=== PATIENT | female | born 1945 | race Caucasian/White ===

== ENCOUNTER 2024-04-15 11:09 | Inpatient (IN) | payer MEDICARE, SELFPAY ==
[2024-04-15] VITALS (7 sets, daily range): BP systolic 141–168; BP diastolic 82–117; PULSE 102–131; RESP 12–26; TEMP 36.2–36.9; O2SAT 86–96; BMI 42.9; BMI 37.8; BMI 42.5
--- NOTE | 2024-04-15 11:29 | VDLE_ITS ---
Reason For Study Reason For Study: Right leg swelling RIGHT LEFT GSV is normal. CFV is compressible, spontaneous, competent, and CFV is compressible, spontaneous, competent and demonstrates pulsatile venous flow. demonstrates pulsatile venous flow. FV is compressible, spontaneous, competent and demonstrates pulsatile venous flow. POP V is compressible, spontaneous, competent and demonstrates pulsatile venous flow. T/P Trunk is compressible. RT PerV is compressible. Acute deep vein thrombosis is noted in the Gastrocnemius V and PTV. It is dilated and NONCOMPRESSIBLE. Nonvascularized structure noted in the right prox calf muscle that measures 0.97 x 3.02 x 7.36 cm. Procedure This is a venous duplex using B-mode, color flow and spectral Doppler. Exam performed portable in ED. A preliminary report was called and/or faxed to [facility]. VL/Venous Duplex US, Unilateral Interpretation Summary Acute deep vein thrombosis is noted in the right gastrocnemius vein, posterior tibial vein. Nonvascularized structure noted in the right proximal calf muscle that measures 0.97 x 3.02 x 7.36 cm. Ordering Physician: Reva Abdalla Performed By: Bryanna Walsh RVT
--- NOTE | 2024-04-15 11:30 | EDS_ITS ---
<Statement entered by Bay Null, - 04/15/24 14:39> Patient was seen and examined with physician warehouse administrative assistant Sonya All components of the history and physical confirmed and agreed. History of present illness and physical exam: Patient is a 78-year-old female with no known significant past medical history who presented to the emerged part with a chief complaint shortness of breath. Patient states that yesterday around 2:00 in the afternoon she developed shortness of breath that had progressively worsened to the point that she could not walk more than 6 feet without becoming severely short of breath prompting her to come here for the valuation management. Patient states that she has had intermittent swelling of her right lower extremity. She states that she is supposed to see her orthopedic doctor tomorrow to be assessed for a DVT. Patient states that a coworker was recently sick with influenza. Patient denies any recent travel history. Review of systems: constitutional: Denies lightheadedness, dizziness, fevers, chills Eyes: Denies change in vision double vision blurry vision Cardiovascular: Denies chest pain or palpitations Respiratory: Complains of shortness of breath as noted above Abdomen: Denies nausea vomit diarrhea : Denies any urinary symptoms Neurological: Denies any numbness, weakness, tingling Musculoskeletal: Denies back pain Skin: Denies rashes or lesions Physical exam General: Patient lying in bed rest comfortably did not appear to be in acute distress Head: Atraumatic, normocephalic Eyes: PERRL bilaterally, EOMI bilateral, no conjunctival injection noted Neck: Soft, supple, trachea midline Cardiovascular: Regular rate and rhythm no murmurs gallops rubs noted Respiratory: No wheezing noted Extremities: +5/5 strength noted in the bilateral upper and lower extremities, radial pulses +2/4 in the bilateral extremities, no pedal edema on exam Neurological: Patient following commands knew that she was at [facility] the year is 2024 Skin: Warm, dry, intact no rashes or lesions noted MDM Patient is a 78-year-old female who presents to the emergency department the chief complaint of acute shortness of breath over the last 2 days. On the differential diagnose included but not limited to pneumonia, pneumothorax, upper respiratory infection secondary to viral etiology, PE. Once workup is obtained and reviewed she will be reevaluated. Patient CBC was largely unremarkable no evidence leukocytosis white blood count normal 8.1, hemoglobin 13.8, plate count was noted be 299. Patient's INR normal at 1.1, PT of 14.2. Patient sodium normal 141, potassium 3.3, creatinine normal at 0.90. Patient's troponin was elevated 464, EKG was reviewed by myself showed sinus tachycardia with a rate of 123 bpm. Patient's proBNP elevated 205. Patient's CTA of her chest reviewed showed diffuse bilateral pulmonary emboli. Patient does not have a contraindications to blood thinner medications no recent surgeries no intracranial hemorrhage no dark tarry stools. Will place the patient on heparin with a bolus. Did discuss case with hospitalist Dr. Ovalles who will accept the patient for admission he states that he would prefer to use Lovenox over heparin therefore this was discontinued. Patient was notified she is agreeable's plan all question concerns answered. Final impression: Acute hypoxic respiratory failure Type II VT Bilateral pulmonary emboli Right lower extremity DVT Disposition: Patient will be admitted to the hospital for further evaluation management Supervising attending attestation: Bay FLOYD History of Present Illness Chief Complaint: Shortness of Breath Narrative Narrative: Patient presenting today with shortness of breath that started yesterday afternoon around 2 PM. She reports that she cannot walk more than 6 feet without feeling short of breath. This has never happened before. She denies any history of COPD, asthma, a cardiac history, or history of blood clots/recent surgery/travel/immobilization. She reports that she has had intermittent swell ing to her right lower leg since November. She is supposed to see her orthopedist tomorrow to be assessed for a DVT. She denies flulike symptoms, fevers, chills, orthopnea, and chest pain. She denies a PMH of any chronic medical conditions but also reports that she does not see a PCP. PFSH PFS Home Medications ?Medication ?Instructions ?Recorded ?Last Taken ?Type No Known/Unobtainable [No Known 4 Unknown History Home Medications] Allergy/AdvReac Type Severity Reaction Status Date / Time No Known Allergies Allergy Verified 04/15/24 11:13 Social History Smoking Status: Never smoker EXAM Physical Exam Const Vital Signs: 04/15/24 11:10 04/15/24 11:12 04/15/24 11:24 Temperature 97.2 F L 97.2 F L Temperature Source Oral Oral Pulse Rate 131 H 127 H Respiratory Rate 22 H 26 H Respiratory Effort Respiratory Depth Respiratory Pattern Blood Pressure 168/117 H 168/117 H Blood Pressure Mean 134 134 Pulse Ox 86 95 Oxygen Delivery Method Room Air Nasal Cannula Room Air Oxygen Flow Rate (L/min) 2 04/15/24 11:54 Temperature Temperature Source Pulse Rate Respiratory Rate Respiratory Effort Short of Breath Respiratory Depth Normal Respiratory Pattern Normal Blood Pressure Blood Pressure Mean Pulse Ox Oxygen Delivery Method Room Air Oxygen Flow Rate (L/min) MDM MDM MDM Narrative Medical decision making narrative: Patient presenting today due to shortness of breath that started acutely yesterday afternoon. She did arrive hypoxic at 86% and is now on 2 L supplemental O2. She is tachycardic around 130 bpm. She has had intermittent right leg swelling since November. I do have concerns for right DVT and PE. Labs obtained, her CBC is unremarkable, potassium slightly low at 3.3, her initial troponin is elevated at 464. BNP 205.3. COVID/influenza/RSV is negati ve. Venous Doppler of the RLE reveals an acute DVT in the right gastroc and PTV. Chest CTA shows diffuse bilateral pulmonary emboli, no right-sided heart strain. Patient does not have any contraindications to anticoagulation, after speaking with the hospitalist regarding admission, he recommended Lovenox. Patient was given a dose of this and will be admitted in stable condition. Lab Data Attestation: I reviewed the patient's lab results. Labs: Laboratory Results - last 24 hr 04/15/24 11:34 WBC 8.1 RBC 4.63 Hgb 13.8 Hct 40.7 MCV 87.9 MCH 29.8 MCHC 33.9 RDW Std Deviation 41.5 RDW Coeff of Tad 13.1 Plt Count 299 MPV 10.3 Immature Gran % (Auto) 0.200 Neut % (Auto) 81.1 H Lymph % (Auto) 12.5 L [place] % (Auto) 5.9 Eos % (Auto) 0.1 Baso % (Auto) 0.2 Absolute Neuts (auto) 6.5 Absolute Lymphs (auto) 1.01 Nucleated RBC % 0 PT 14.2 INR 1.1 APTT 24.3 Sodium 141 Potassium 3.3 L Chloride 106 Carbon Dioxide 24.0 Anion Gap 10 BUN 18 Creatinine 0.90 Estim Creat Clear Calc 60.05 Est GFR (MDRD) Af Amer 78 Est GFR (MDRD) Non-Af 65 BUN/Creatinine Ratio 20.0 Glucose 135 H Calcium 9.7 Troponin I High Sens 464 H* B-Natriuretic Peptide 205.3 H Radiography Diagnostic Testing: Clinical Impression(s) from Imaging Studies Chest CTA 04/15/24 12:14 IMPRESSION: Diffuse bilateral pulmonary emboli. The results were communicated to the referring physician. One or more dose reduction techniques were used (e.g., Automated exposure c ontrol, adjustment of the mA and/or kV according to patient size, use of iterative reconstruction technique). Reading Location: [id number] EKG Initial EKG: Comments: 123 bpm, sinus tachycardia, no ST elevation interpreted by attending ED physician Discharge Plan Dx/Rx/DC Orders Clinical Impression: Multiple pulmonary emboli, Deep vein thrombosis (DVT) of right lower extremity, Elevated troponin Disposition Disposition: Acute Care Hospital [facility] Discharge Date/Time: 04/15/24 13:21
[2024-04-15 11:46] LABS: Absolute Lymphocyte Count 1.01 X10^3/uL (0.83-4.51); Absolute Neutrophil Count 6.5 X10^3/uL (2.0-7.7); Basophil# 0.02 X10^3/uL; Basophil% 0.2 % (0-1); Eosinophil# 0.01 X10^3/uL; Eosinophils% 0.1 % (0-5); Hematocrit 40.7 % (37-47); Hemoglobin 13.8 g/dL (12.0-15.0); Lymphocyte # 1.01 X10^3/ul (0.83-4.51); Lymphocyte % 12.5 % (19-41); Mean Corp Hgb Conc 33.9 g/dL (32-36); Mean Corpuscular Hgb 29.8 pg (27.0-32.0); Mean Corpuscular Volume 87.9 fL (81-99); Mean Platelet Vol. 10.3 fl (6.2-12.0); Monocyte# 0.48 X10^3/uL; Monocyte% 5.9 % (0-10); NRBC Flagged by Analyzer 0 % (0-5); Neutrophil # 6.53 X10^3/uL (2.7-7.7); Neutrophil % 81.1 % (47-70); Platelet Count 299 K/mm3 (150-450); RBC Distribution Width CV 13.1 % (11.6-14.6); RBC Distribution Width SD 41.5 fl (35.1-43.9); Red Blood Count 4.63 M/mm3 (4.2-5.4); White Blood Count 8.1 K/mm3 (4.4-11.0)
[2024-04-15 12:09] LABS: Anion Gap 10 (5-15); BUN 18 mg/dL (7-18); Calcium,Total 9.7 mg/dL (8.5-10.1); Chloride 106 mmol/L (98-107); EST Glomerular Filtration Rate 65 mL/min (>60); Est Glom Filt Rate - Afr Amer 78 mL/min (>60); Estimated Creatinine Clearance 60.05 ml/min; Glucose 135 mg/dL (74-106); Potassium 3.3 mmol/L (3.5-5.1); Sodium Level 141 mmol/L (136-145); Troponin-I HS 464 pg/mL (3.0-54.0)
--- NOTE | 2024-04-15 12:14 | CT_ITS ---
PROCEDURE: CTA CHEST W/WO CONTRAST REASON FOR EXAM: 1 day history of shortness of breath and tachypnea. TECHNIQUE: CTA imaging of the chest with intravenous contrast. 3D reconstructions. CONTRAST: COMPARISON: None. FINDINGS: Hardware: None. Lymph nodes: No mediastinal hilar or axillary lymphadenopathy. Heart: Normal heart size. No pericardial effusion. RV/LV Diameter Ratio: N/A Thoracic Aorta: No thoracic aortic aneurysm or dissection. Pulmonary Vessels: Multiple intraluminal filling defects are seen in the DC distal portions of both the right and left pulmonary artery with extension into the interlobar arteries bilaterally as well as multiple branches of both the upper and lower lobe pulmonary arterial branches. This is in keeping with diffuse pulmonary emboli. Lungs and Airways: The lungs are normally expanded and clear. Pleura: No pleural effusion. No pneumothorax. Upper Abdomen: There is a 6.4 cm x 4.8 cm cyst in the anterior aspect of the upper pole of the right kidney. Fatty infiltration of the liver. Small hiatal hernia. Bones: Bone windows are unremarkable. CT/CTA Chest W/WO Contrast IMPRESSION: Diffuse bilateral pulmonary emboli. The results were communicated to the refer ring physician. One or more dose reduction techniques were used (e.g., Automated exposure contr ol, adjustment of the mA and/or kV according to patient size, use of iterative reconstruction technique). Reading Location: [id number]
[2024-04-15 12:21] LABS: BNP,B-Type NATRIURETIC PEPTIDE 205.3 pg/mL (0-100)
--- NOTE | 2024-04-15 13:01 | PCM.HP.STD ---
HPI - General General Date of Admission: 04/15/24 Date of Service: 04/15/24 Chief Complaint: Shortness of breath since yesterday. HPI Narrative TELMA MOODY, is a 78 F came to ED after she felt short of breath about 2 PM afternoon, sudden onset and it progressively worsened to the point that she could not walk more than 6 feet. She also admitted swelling of right lower leg and she was supposed to see her orthopedic doctor tomorrow for evaluation of DVT. She denies any chest pain pressure or tightness. She denies chronic cardiac or pulmonary disease. She denies prior history of DVT or PE or family history of first-degree relative of DVT/PE In ED, she was found hypoxic pulse ox 86% on room air. She was tachycardic and tachypneic. Blood pressure elevated. She was found to have bilateral diffuse pulmonary embolism on the CT angiogram of chest pain. She was given first therapeutic dose of Lovenox and further admitted [facility] Home Medications ?Medication ?Instructions ?Recorded ?Last Taken ?Type No Known/Unobtainable [No Known 08/15/13 Unknown History Home Medications] Allergy/AdvReac Type Severity Reaction Status Date / Time No Known Allergies Allergy Verified 04/15/24 11:13 Social History Smoking Status: Never smoker ROS ROS Narrative Constitutional: Denies chronic fatigue and weakness. No fever. HEENT: Reports systems reviewed and no addt'l complaints, except as documented Respiratory/Chest: As described in HPI CVS: Denies chest pain or pressure Gastrointestinal: Denies coffee ground emesis, hematemesis or vomiting Genitourinary: Denies burning urination or new urinary tract symptoms Musculoskeletal: Mild right lower leg swelling. Denies acute joint pain or limited range of motion. No acute injury Neurologic: Denies seizure-like symptoms. skin: No ulcer. No rash Endocrinology: Reports systems reviewed and no addt'l complaints, except as documented Hematologic/Lymphatic: Reports systems reviewed and no addt'l complaints, except as documented Rest 14 ROS are negative except as mentioned in HPI Vital Signs Vital Signs Vital Signs: 04/15/24 11:10 04/15/24 11:12 04/15/24 11:24 Temperature 97.2 F L 97.2 F L Temperature Source Oral Oral Pulse Rate 131 H 127 H Respiratory Rate 22 H 26 H Respiratory Effort Respiratory Depth Respiratory Pattern Blood Pressure 168/117 H 168/117 H Blood Pressure Mean 134 134 Pulse Ox 86 95 Oxygen Delivery Method Room Air Nasal Cannula Room Air Oxygen Flow Rate (L/min) 2 04/15/24 11:54 Temperature Temperature Source Pulse Rate Respiratory Rate Respiratory Effort Short of Breath Respiratory Depth Normal Respiratory Pattern Normal Blood Pressure Blood Pressure Mean Pulse Ox Oxygen Delivery Method Room Air Oxygen Flow Rate (L/min) Weight Weight: 234 lb 12.677 oz Body Mass Index (BMI) 42.9 Physical Exam Narrative General: Alert, Oriented x3, Cooperative HEENT: Atraumatic, PERRLA, EOMI, Normocephalic Oral: No Gingival or Mucosal Lesions/ Ulcerations Neck: Supple, No JVD, Negative Carotid Bruits Chest wall/Lungs: Air entry diminished in bilateral lung bases. No crepitation/rhonchi Cardiovascular: Regular rate, Regular Rhythm, Normal S1, Normal S2, No M/G/R Abdomen: Bowel Sounds Present, Soft, Non Tender, Non-Distended : No dysuria. No renal angle tenderness. No suprapubic tenderness. Extremities: No edema, Capillary Refill Less than 3 Seconds Skin: No rashes, No breakdown/ulcer Musculoskeletal: RLE calf more swollen than left. No acute tenderness Neurological: Cranial nerves II-XII grossly intact, DTR 2+/4. No acute focal neurological deficit. Psych/Mental Status: Normal Affect, Appropriate. Results Lab / Micro Data 04/15/24 11:34 04/15/24 11:34 Labs: Laboratory Results - last 24 hr 04/15/24 11:34: WBC 8.1, RBC 4.63, Hgb 13.8, Hct 40.7, MCV 87.9, MCH 29.8, MCHC 33.9, RDW Std Deviation 41.5, RDW Coeff of Tad 13.1, Plt Count 299, MPV 10.3, Immature Gran % (Auto) 0.200, Neut % (Auto) 81.1 H, Lymph % (Auto) 12.5 L, [place] % (Auto) 5.9, Eos % (Auto) 0.1, Baso % (Auto) 0.2, Absolute Neuts (auto) 6.5, Absolute Lymphs (auto) 1.01, Nucleated RBC % 0, Sodium 141, Potassium 3.3 L, Chloride 106, Carbon Dioxide 24.0, Anion Gap 10, BUN 18, Creatinine 0.90, Estim Creat Clear Calc 60.05, Est GFR (MDRD) Af Amer 78, Est GFR (MDRD) Non-Af 65, BUN/Creatinine Ratio 20.0, Glucose 135 H, Calcium 9.7, Troponin I High Sens 464 H*, B-Natriuretic Peptide 205.3 H Micro: Microbiology 04/15/24 11:54 Mucosa - Nose SARS-CoV-2, Influenza & RSV (PCR) - Final Imaging Radiology Impression Chest CTA 04/15/24 12:14 IMPRESSION: Diffuse bilateral pulmonary emboli. The results were communicated to the referring physician. One or more dose reduction techniques were used (e.g., Automated exposure control, adjustment of the mA and/or kV according to patient size, use of iterative reconstruction technique). Reading Location: [id number] Assessment & Plan Assessment/Plan (1) Multiple pulmonary emboli: PLAN: Plan This 71-year-old female was admitted with shortness of breath, hypoxia and tachypnea due to bilateral pulmonary embolism 1. Acute dyspnea at rest and hypoxia due to bilateral diffuse pulmonary embolism: Patient is being admitted in PCU. CTA chest shows multiple intraluminal filling defect in both right and left pulmonary artery with extension into interlobar arteries bilaterally and lobar arteries bilaterally suggestive of diffuse bilateral pulmonary emboli. She has elevated BNP and troponin. Started on therapeutic enoxaparin 1 mg/kg body weight every 12 hourly. Hemodynamically blood pressure is good. Does not meet criteria for thrombolytics. 2. Elevated troponin and BNP due to pulmonary embolism: 2D echo is ordered. Troponins are 464 and 719. 3. Mild hypokalemia: Potassium 3.3. Serum magnesium normal. Potassium replacement ordered. 4. Elevated blood pressure: Blood pressure was 168/117 257/99. Started on low-dose lisinopril. Patient not on antihypertensive home medication family undiagnosed hypertension. Will need home/ambulatory BP monitoring to diagnose hypertension as an outpatient 6. Hyperglycemia: A1c ordered Living will/advanced directive/end of life care: Patient does not have living will or advanced directive. Her daughter in the room is her next of kin. After discussion of benefits/risks procedures involved with full code, DNR CC arrest and DNR CC, the patient opted for full code. Patient does want artificial life support including intubation, tube feed, ventilator and/chest compression, central venous catheter, vasopressor and DC shock if needed Total time spent in [id number] encounter in discussion of advanced directive 17 minutes. Microbiology Past 72 Hours 04/15/24 11:54 Mucosa - Nose SARS-CoV-2, Influenza & RSV (PCR) - Final Laboratory Results 04/15/24 11:34: WBC 8.1, RBC 4.63, Hgb 13.8, Hct 40.7, MCV 87.9, MCH 29.8, MCHC 33.9, RDW Std Deviation 41.5, RDW Coeff of Tad 13.1, Plt Count 299, MPV 10.3, Immature Gran % (Auto) 0.200, Neut % (Auto) 81.1 H, Lymph % (Auto) 12.5 L, [place] % (Auto) 5.9, Eos % (Auto) 0.1, Baso % (Auto) 0.2, Absolute Neuts (auto) 6.5, Absolute Lymphs (auto) 1.01, Nucleated RBC % 0, PT 14.2, INR 1.1, APTT 24.3, Sodium 141, Potassium 3.3 L, Chloride 106, Carbon Dioxide 24.0, Anion Gap 10, BUN 18, Creatinine 0.90, Estim Creat Clear Calc 60.05, Est GFR (MDRD) Af Amer 78, Est GFR (MDRD) Non-Af 65, BUN/Creatinine Ratio 20.0, Glucose 135 H, Calcium 9.7, Magnesium 2.1, Troponin I High Sens 464 H*, B-Natriuretic Peptide 205.3 H 04/15/24 13:41: Troponin I High Sens 719 H* Charges/Coding Visit Charges Inpatient E&M: 21178 Init Hosp L3 Procedures Hospitalists Procedures: 00058 Advncd Care Plan 30 Min
[2024-04-15 13:10] LABS: International Normalized Ratio 1.1; Prothrombin Time (Protime)PT. 14.2 SECONDS (11.7-14.9)
[2024-04-15 13:12] LABS: Partial Thromboplast Time 24.3 Seconds (24.1-36.2)
[2024-04-15 13:35] LABS: Magnesium 2.1 mg/dL (1.6-2.6)
[2024-04-15 14:21] LABS: Troponin-I HS 719 pg/mL (3.0-54.0)
--- NOTE | 2024-04-15 15:15 | CASEMGMT ---
NIKOLAY OGDEN Face to Face with patient for initial transition planning/care coordination assessment. RN CM introduced self and role at [facility]. Patient lying in bed, alert and oriented. Patient willing to participate in assessment and is able to answer all questions appropriately. Care providers, pharmacy, and demographics verified. Strata: 1 PCP: none, list provided Specialists: none Preferred Pharmacy: [facility] Insurance: [employer] Track[employer] [facility] Prescription Benefit: yes Living Will/HPOA: none, interested in completing, SW notified LNOK: daugther Living Arrangements: Patient lives alone in a single story home with 4 steps and railing. Patient is independent at home. Transportation: self, daughter DME/HHC: Patient has raised toilet, cane, grab bars at home. No previous HHC or SNF. Patient currently on home oxygen, reviewed agencies, prefers [employer], will monitor. Patient wishes to discharge home, denies need for home health at this time. Patient states she has no further needs or concerns at this time. CM to follow for discharge planning needs that may arise. Disposition Plan: Patient to discharge home with family support and followup plans in place. Will monitor for home oxygen. Bryanna BATISTA, RN, CM
--- NOTE | 2024-04-15 15:51 | ECHOD_ITS ---
Reason For Study : Pulmonary Embolism Procedure This was a 2D Doppler, Color Flow transthoracic echocardiogram. Exam performed portable in patient room. Left Ventricle Normal LV size. Mild concentric left ventricular hypertrophy. The left ventricular ejection fraction is 65 %. Stage 1 diastolic dysfunction. Right Ventricle Mildly dilated right ventricle. Mild global right ventricular systolic dysfunction. Atria The left and right atria are normal. Hypermobile atrial septum. Mitral Valve Mild (1+) mitral valve insufficiency. Tricuspid Valve Mild tricuspid valve insufficiency. Right ventricular systolic pressure estimated to be 67 mmHg. Aortic Valve Aortic sclerosis, no stenosis. Trivial aortic valve insufficiency. Pulmonic Valve The pulmonic valve is not well visualized. Great Vessels Normal sized aortic root. Pericardium/Pleural No pericardial effusion. MMode/2D Measurements & Calculations LVIDd: 3.1 cm IVSd: 1.4 cm asc Aorta Diam: 3.3 cm LVIDs: 2.0 cm LVPWd: 1.1 cm RVDd: 4.4 cm FS: 34.6 % LAV(MOD-bp): 46.2 ml LVAd ap4: 17.3 cm2 SV(MOD-sp4): 23.2 ml LAV(MOD-bp) Indexed: 23.2 ml/m2 LVLd ap4: 6.9 cm SI(MOD-sp4): 11.7 ml/m2 LAV(MOD-sp2): 38.2 ml EDV(MOD-sp4): 36.0 ml LAV(MOD-sp4): 53.2 ml EDV(sp4-el): 36.6 ml LVAs ap4: 9.1 cm2 LVLs ap4: 5.7 cm ESV(MOD-sp4): 12.8 ml ESV(sp4-el): 12.4 ml EF(MOD-sp4): 64.5 % EF(sp4-el): 66.1 % SV(sp4-el): 24.2 ml LA A4 area: 19.6 cm2 LA dimension(2D): 4.0 cm RA A4 area: 9.9 cm2 TAPSE: 1.9 cm Time Measurements MV dec time: 0.22 sec Doppler Measurements & Calculations MV E max soren: 64.4 cm/sec Lat Peak E' Soren: 8.0 cm/sec Med Peak E' Soren: 4.9 cm/sec MV A max soren: 123.7 cm/sec E/E' lat: 8.0 E/E' med: 13.2 MV E/A: 0.52 Ao V2 max: 136.9 cm/sec LV V1 max: 111.2 cm/sec MV dec slope: 297.8 cm/sec2 Ao max P.5 mmHg LV V1 max P.9 mmHg Ao V2 mean: 97.9 cm/sec Ao mean P.2 mmHg Ao V2 VTI: 26.8 cm PA V2 max: 88.7 cm/sec TR max soren: 362.3 cm/sec TR max P.5 mmHg ECHO/Echo Complete Interpretation Summary Mild concentric left ventricular hypertrophy. The left ventricular ejection fraction is 65 %. Stage 1 diastolic dysfunction. Mildly dilated right ventricle. Mild global right ventricular systolic dysfunction. Hypermobile atrial septum. Mild (1+) mitral valve insufficiency. Mild tricuspid valve insufficiency. Right ventricular systolic pressure estimated to be 67 mmHg. Aortic sclerosis, no stenosis. Hepatic cysts noted. Consider ultrasound of liver for further evaluation. Ordering Physician: Shekhar Ovalles Referring Physician: Bay Null Performed By: Ursula Cohen, WAGNER, RVT
[2024-04-15] MEDS: Enoxaparin 120 MG/0.8 ML Syringe 110 MG SC ×2 (16:08→20:57)
[2024-04-15] MEDS: KCL 20MEQ in 0.45%NS 20 MEQ/1,000 ML IV.SOLN. 75 MEQ IV (16:09)
[2024-04-15] MEDS: 0.9% Saline Lock 10 ML Syringe IV (16:09)
[2024-04-15] MEDS: Lisinopril 5 MG Tablet PO (16:20)
[2024-04-15 18:43] LABS: Troponin-I HS 612 pg/mL (3.0-54.0)
[2024-04-16 03:32] VITALS: BP 140/79; PULSE 92; RESP 19; TEMP 36.6; O2SAT 96
[2024-04-16 03:41] VITALS: BMI 42.7
[2024-04-16 06:01] LABS: Absolute Lymphocyte Count 1.41 X10^3/uL (0.83-4.51); Absolute Neutrophil Count 4.6 X10^3/uL (2.0-7.7); Basophil# 0.06 X10^3/uL; Basophil% 0.9 % (0-1); Eosinophil# 0.06 X10^3/uL; Eosinophils% 0.9 % (0-5); Hematocrit 38.2 % (37-47); Hemoglobin 12.6 g/dL (12.0-15.0); Lymphocyte # 1.41 X10^3/ul (0.83-4.51); Lymphocyte % 20.9 % (19-41); Mean Corpuscular Hgb 29.3 pg (27.0-32.0); Mean Corpuscular Volume 88.8 fL (81-99); Monocyte% 8.9 % (0-10); NRBC Flagged by Analyzer 0 % (0-5); Neutrophil # 4.61 X10^3/uL (2.7-7.7); Neutrophil % 68.1 % (47-70); Platelet Count 250 K/mm3 (150-450); RBC Distribution Width CV 13.1 % (11.6-14.6); RBC Distribution Width SD 42.4 fl (35.1-43.9); White Blood Count 6.8 K/mm3 (4.4-11.0)
[2024-04-16 06:40] LABS: Anion Gap 9 (5-15); BUN 18 mg/dL (7-18); BUN/Creat Ratio 25.1 RATIO (10-20); Calcium,Total 9.3 mg/dL (8.5-10.1); Chloride 108 mmol/L (98-107); Creatinine, Serum 0.72 mg/dL (0.55-1.02); EST Glomerular Filtration Rate 84 mL/min (>60); Est Glom Filt Rate - Afr Amer 101 mL/min (>60); Estimated Creatinine Clearance 64.89 ml/min; Glucose 110 mg/dL (74-106); Potassium 3.5 mmol/L (3.5-5.1); Sodium Level 142 mmol/L (136-145)
[2024-04-16 09:30] VITALS: BP 149/78; PULSE 110; RESP 16; TEMP 37.1; O2SAT 93
--- NOTE | 2024-04-16 09:39 | DCINST_ITS ---
Discharge Instructions Diet Discharge Diet: 2000 mg Sodium Diet DC O2, CPAP, BIPAP needs RN Home O2 Qualification: Home O2 Qualification: Is the patient on home oxygen No 04/16/24 10:09 Home O2 Qualification: AT REST 1- Pulse Ox at rest 93 04/16/24 10:09 Home O2 Qualification: WITH AMBULATION 1- Pulse Ox with ambulation 89 04/16/24 10:09 1- Oxygen Flow Rate with 0 04/16/24 10:09 ambulation Home O2 Discharge instructions: No Dressing / Incision Discharge Activity: Return to Normal Activity Weight Bearing Status: Weight bearing as tolerated Dressing / Incision Call your doctor if you observe: Fever of 101 or Higher, Coldness, Increased Pain, Numbness or Tingling, Change in Color, Inability to urinate, Inability to have a bowel movement, Shortness of breath, Dizziness, Fainting spells, Swelling in the ankles, Chest pain, Prolonged hiccupping, Increased palpitations (irregular heartbeat) and Calf discomfort Follow Up Care When: IN 2 WEEKS Test Results: Test results from this visit will be discussed in further detail at your follow- up appointment, if applicable. Discharge Plan Admission Admit Date/Time: 04/15/24 15:27 Primary Reason for Your Visit: Bilateral diffuse pulmonary embolism Attending Provider: Shekhar Ovalles Primary Care Provider: Raj Ruiz,Carlyn Primary Consulting Providers: Con Owens Additional Instructions / Restrictions: Patient will need to follow-up with hematology clinic after completion of 6 months of anticoagulant, Eliquis. Discharge Orders/Prescriptions Prescriptions: New Eliquis 5 mg Tablet 5 mg PO BID 30 Days Qty: 60 2RF Rx Instructions: Start on 04/23/2024 at 10 AM Eliquis 5 mg Tablet 10 mg PO BID 7 Days Qty: 28 0RF Rx Instructions: Last dose of 10 mg On 04/22/2024 and then switch to 5 mg twice daily from 04/17/24 lisinopril 10 mg tablet 10 mg PO DAILY 30 Days Qty: 30 2RF Referrals / Follow Up: Care Physician,No Primary [Primary Care Provider] - [facility] Doctor,Out of [Non-Staff] - Severiano Subramanian DO [Med Staff - Active Staff] - Within 1 Month (For right ventricular dysfunction due to PE, acute cor pulmonale) Disposition Disposition (needs filled in before D/C Order can be placed): Home, Self Care
[2024-04-16 09:43] LABS: Hemoglobin A1c 5.5 % (3.8-5.6)
[2024-04-16] MEDS: Lisinopril 5 MG Tablet PO (09:43)
[2024-04-16 09:53] VITALS: O2SAT 89; O2SAT 93
[2024-04-16 10:09] VITALS: O2SAT 89; O2SAT 93
[2024-04-16] MEDS: APIXABAN 5 MG TABLET 10 MG PO (10:54)
--- NOTE | 2024-04-16 10:59 | CASEMGMT ---
RN MELVI informed SW that patient would like to complete advance directives. SW met with patient and her daughter Kristen. Introduced self and role at [facility]. Patient and Kristen confirmed they would like to do documents. SW assisted patient in completing both Healthcare Power of Chief Engineer and Healthcare Living Will. Copies were made and given to patient along with originals. A copy of each was also placed in patient's chart. Criselda VALLADARES
--- NOTE | 2024-04-16 11:47 | DS.PCM_ITS ---
Providers Date of Admission: 04/15/24 Date of Discharge: 04/16/24 Primary Care Physician: No Primary Care Phys Reason For Visit: ACUTE HYPOXIC RESP FAILURE Diagnosis Discharge Diagnosis (1) Multiple pulmonary emboli: Status: Acute Code(s): I26.99 - Other pulmonary embolism without acute cor pulmonale Plan This 71-year-old female was admitted with shortness of breath, hypoxia and tachypnea due to bilateral pulmonary embolism 1. Acute dyspnea at rest and hypoxia due to bilateral diffuse pulmonary embolism: Patient is being admitted in PCU. CTA chest shows multiple intraluminal filling defect in both right and left pulmonary artery with extension into interlobar arteries bilaterally and lobar arteries bilaterally suggestive of diffuse bilateral pulmonary emboli. She has elevated BNP and troponin. Started on therapeutic enoxaparin 1 mg/kg body weight every 12 hourly. Hemodynamically blood pressure is good. Does not meet criteria for thrombolytics. 04/16: Hypoxia resolved. Pulse ox 93% on room air. Home oxygen qualification test ordered. 2D echo done and reported as below 2. Elevated troponin and BNP due to pulmonary embolism with RV dysfunction and mildly dilated RV suggestive of acute cor pulmonale, mild TR, mild MR and mild chronic HFpEF: Troponins are 464 and 719. Echo 04/15/2024: Interpretation Summary Mild concentric left ventricular hypertrophy. The left ventricular ejection fraction is 65 %. Stage 1 diastolic dysfunction. Mildly dilated right ventricle. Mild global right ventricular systolic dysfunction. Hypermobile atrial septum. Mild (1+) mitral valve insufficiency. Mild tricuspid valve insufficiency. Right ventricular systolic pressure estimated to be 67 mmHg. Aortic sclerosis, no stenosis. 3. Mild hypokalemia: Potassium 3.3. Serum magnesium normal. Potassium replacement ordered. : Hypokalemia resolved. 4. Elevated blood pressure: Blood pressure was 168/117 257/99. Started on low- dose lisinopril. Patient not on antihypertensive home medication family undiagnosed hypertension. Will need home/ambulatory BP monitoring to diagnose hypertension as an outpatient 04/16: Blood pressure is still elevated. Lisinopril dose increased to 10 mg daily and prescription given for the same. Follow with PCP. 6. Hyperglycemia: 04/16: A1c 5.5% is normal therefore prediabetes or diabetes mellitus ruled out. Living will/advanced directive/end of life care: Patient does not have living will or advanced directive. Her daughter in the room is her next of kin. After discussion of benefits/risks procedures involved with full code, DNR CC arrest and DNR CC, the patient opted for full code. Patient does want artificial life support including intubation, tube feed, ventilator and/chest compression, central venous catheter, vasopressor and DC shock if needed Discharge medication reconciliation done. Discharge follow-up instructions completed. Discharge process discussed with the patient and all questions were answered to patient's satisfaction. Follow with PCP in 1 to 2 weeks Total time spent, exact 35 minutes on discharge meds reconciliation, examination, coordination of care with nurses and ancillary staff, review of imaging and blood test and discussion with the patient on follow-up instructions. Microbiology Past 72 Hours 04/15/24 11:54 Mucosa - Nose SARS-CoV-2, Influenza & RSV (PCR) - Final Laboratory Results 04/15/24 11:34: PT 14.2, INR 1.1, APTT 24.3, Sodium 141, Potassium 3.3 L, Chloride 106, Carbon Dioxide 24.0, Anion Gap 10, BUN 18, Creatinine 0.90, Estim Creat Clear Calc 60.05, Est GFR (MDRD) Af Amer 78, Est GFR (MDRD) Non-Af 65, BUN/Creatinine Ratio 20.0, Glucose 135 H, Calcium 9.7, Magnesium 2.1, Troponin I High Sens 464 H*, B-Natriuretic Peptide 205.3 H 04/15/24 13:41: Troponin I High Sens 719 H* 04/15/24 17:32: Troponin I High Sens 612 H* 04/16/24 05:32: WBC 6.8, RBC 4.30, Hgb 12.6, Hct 38.2, MCV 88.8, MCH 29.3, MCHC 33.0, RDW Std Deviation 42.4, RDW Coeff of Tad 13.1, Plt Count 250, MPV 10.0, Immature Gran % (Auto) 0.300, Neut % (Auto) 68.1, Lymph % (Auto) 20.9, Appling % (Auto) 8.9, Eos % (Auto) 0.9, Baso % (Auto) 0.9, Absolute Neuts (auto) 4.6, Absolute Lymphs (auto) 1.41, Nucleated RBC % 0, Sodium 142, Potassium 3.5, C hloride 108 H, Carbon Dioxide 26.0, Anion Gap 9, BUN 18, Creatinine 0.72, Estim Creat Clear Calc 64.89, Est GFR (MDRD) Af Amer 101, Est GFR (MDRD) Non-Af 84, B UN/Creatinine Ratio 25.1 H, Glucose 110 H, Hemoglobin A1c 5.5, Calcium 9.3, TSH 0.010 L Medications at Discharge Home Medications apixaban 5 mg tablet (Eliquis) 5 mg PO BID 30 days #60 tabs 04/16/24 apixaban 5 mg tablet (Eliquis) 10 mg (2 x 5 mg) PO BID 7 days #28 tabs 04/16/24 lisinopril 10 mg tablet 10 mg PO DAILY 30 days #30 tabs 04/16/24 Physical Exam Narrative Seen and examined. No chest pain or pressure or tightness. Hypoxia has resolved. Explained about the antithrombotic, apixaban. Physical exam General: Alert, Oriented x3, Cooperative HEENT: Atraumatic, PERRLA, EOMI, Normocephalic Oral: No Gingival or Mucosal Lesions/ Ulcerations Neck: Supple, No JVD, Negative Carotid Bruits Chest wall/Lungs: Air entry diminished in bilateral lung bases. No crepitation/rhonchi Cardiovascular: Regular rate, Regular Rhythm, Normal S1, Normal S2, No M/G/R Abdomen: Bowel Sounds Present, Soft, Non Tender, Non-Distended : No dysuria. No renal angle tenderness. No suprapubic tenderness. Extremities: No edema, Capillary Refill Less than 3 Seconds Skin: No rashes, No breakdown/ulcer Musculoskeletal: RLE calf more swollen than left. No acute tenderness Neurological: Cranial nerves II-XII grossly intact, DTR 2+/4. No acute focal neurological deficit. Psych/Mental Status: Normal Affect, Appropriate. Weight / BMI Weight Weight: 226 lb 10.163 oz Body Mass Index (BMI) 42.7 ABG / Lab / Microbiology Data 04/16/24 05:32 04/16/24 05:32 Laboratory: Laboratory Results - last 24 hr 04/15/24 11:34: PT 14.2, INR 1.1, APTT 24.3, Sodium 141, Potassium 3.3 L, Chloride 106, Carbon Dioxide 24.0, Anion Gap 10, BUN 18, Creatinine 0.90, Estim Creat Clear Calc 60.05, Est GFR (MDRD) Af Amer 78, Est GFR (MDRD) Non-Af 65, BUN/Creatinine Ratio 20.0, Glucose 135 H, Calcium 9.7, Magnesium 2.1, Troponin I High Sens 464 H*, B-Natriuretic Peptide 205.3 H 04/15/24 13:41: Troponin I High Sens 719 H* 04/15/24 17:32: Troponin I High Sens 612 H* 04/16/24 05:32: WBC 6.8, RBC 4.30, Hgb 12.6, Hct 38.2, MCV 88.8, MCH 29.3, MCHC 33.0, RDW Std Deviation 42.4, RDW Coeff of Tad 13.1, Plt Count 250, MPV 10.0, Immature Gran % (Auto) 0.300, Neut % (Auto) 68.1, Lymph % (Auto) 20.9, Appling % (Auto) 8.9, Eos % (Auto) 0.9, Baso % (Auto) 0.9, Absolute Neuts (auto) 4.6, Absolute Lymphs (auto) 1.41, Nucleated RBC % 0, Sodium 142, Potassium 3.5, C hloride 108 H, Carbon Dioxide 26.0, Anion Gap 9, BUN 18, Creatinine 0.72, Estim Creat Clear Calc 64.89, Est GFR (MDRD) Af Amer 101, Est GFR (MDRD) Non-Af 84, B UN/Creatinine Ratio 25.1 H, Glucose 110 H, Hemoglobin A1c 5.5, Calcium 9.3, TSH 0.010 L Microbiology: Microbiology 04/15/24 11:54 Mucosa - Nose SARS-CoV-2, Influenza & RSV (PCR) - Final Radiography Diagnostic Testing: Radiology Impression Chest CTA 04/15/24 12:14 IMPRESSION: Diffuse bilateral pulmonary emboli. The results were communicated to the referring physician. One or more dose reduction techniques were used (e.g., Automated exposure control, adjustment of the mA and/or kV according to patient size, use of iterative reconstruction technique). Reading Location: [id number] Echocardiogram 04/15/24 15:51 Interpretation Summary Mild concentric left ventricular hypertrophy. The left ventricular ejection fraction is 65 %. Stage 1 diastolic dysfunction. Mildly dilated right ventricle. Mild global right ventricular systolic dysfunction. Hypermobile atrial septum. Mild (1+) mitral valve insufficiency. Mild tricuspid valve insufficiency. Right ventricular systolic pressure estimated to be 67 mmHg. Aortic sclerosis, no stenosis. Hepatic cysts noted. Consider ultrasound of liver for further evaluation. Ordering Physician: Shekhar Ovalles Referring Physician: Bay Null Performed By: Ursula Cohen RDCS, RVT D/C Instructions Discharge Diet: 2000 mg Sodium Diet Weight Bearing Status: Weight bearing as tolerated Call your doctor if you observe: Fever of 101 or Higher, Coldness, Increased Pain, Numbness or Tingling, Change in Color, Inability to urinate, Inability to have a bowel movement, Shortness of breath, Dizziness, Fainting spells, Swelling in the ankles, Chest pain, Prolonged hiccupping, Increased palpitations (irregular heartbeat) and Calf discomfort DC O2, CPAP, BIPAP Needs RN Home O2 Qualification: Home O2 Qualification: Is the patient on home oxygen No 04/16/24 10:09 Home O2 Qualification: AT REST 1- Pulse Ox at rest 93 04/16/24 10:09 Home O2 Qualification: WITH AMBULATION 1- Pulse Ox with ambulation 89 04/16/24 10:09 1- Oxygen Flow Rate with 0 04/16/24 10:09 ambulation Home O2 Discharge instructions: No When: IN 2 WEEKS Meaningful Use Info Meaningful Use Meaningful Use Diagnoses (Choose all that apply): VTE Ischemic Stroke Statin Dosing Therapy Reference: STATIN DOSE THERAPY REFERENCE: * Patients > 75 years receive moderate or high dose statin therapy. * Patients 75 years or YOUNGER should receive HIGH intensity statin dose unless contraindicated. You will be required to document reason for non-treatment if statin daily dose does not meet guidelines. HIGH DOSE STATIN THERAPY DAILY Atorvastatin > than or = to 40 mg Rosuvastatin > than or = to 20 mg Amlodipine + Atorvastatin > than or = to 2.5/40 mg Ezetimibe + Simvastatin 10/80 mg Simvastatin 80mg VTE Anticoag overlap given w/in hospital stay or rx'd at dc?: Yes Pt receive overlap for 5 days?: No Reason overlap not ordered, prescribed, or given for 5 days: Procedure Not Indicated Discharge Plan Admission Admit Date/Time: 04/15/24 15:27 Primary Reason for Your Visit: Bilateral diffuse pulmonary embolism Attending Provider: Shekhar Ovalles Primary Care Provider: Care Physician,No Primary Consulting Providers: Con Owens Instructions Additional Instructions / Restrictions: Patient will need to follow-up with hematology clinic after completion of 6 months of anticoagulant, Eliquis. Discharge Orders/Prescriptions Prescriptions: New Eliquis 5 mg Tablet 5 mg PO BID 30 Days Qty: 60 2RF Rx Instructions: Start on 04/23/2024 at 10 AM Eliquis 5 mg Tablet 10 mg PO BID 7 Days Qty: 28 0RF Rx Instructions: Last dose of 10 mg On 04/22/2024 and then switch to 5 mg twice daily from 04/17/24 lisinopril 10 mg tablet 10 mg PO DAILY 30 Days Qty: 30 2RF Referrals / Follow Up: Severiano Subramanian DO [Med Staff - Active Staff] - Within 1 Month (For right ventricular dysfunction due to PE, acute cor pulmonale) Care Physician,No Primary [Primary Care Provider] - [facility] Doctor,Out of [Non-Staff] - Disposition Disposition (needs filled in before D/C Order can be placed): Home, Self Care Charges/Coding Addendum Addendum: Follow-up in pulmonary clinic Visit Charges Inpatient E&M: 38720 Disch Hosp >30min
--- NOTE | 2024-04-16 12:40 | CASEMGMT ---
Patient has order for discharge. Patient is discharging on Eliquis, NIKOLAY OGDEN called [facility], copay is $397, savings card applied. RN CM in to discuss needs at discharge. RN CM updated patient regarding Eliquis copay and savings card applied. Patient and daughter deny needs or help at discharge. Patient had no further questions or concerns.
[2024-04-16] MEDS: Potassium Chloride Oral Tablet 20 MEQ 40 MEQ PO (13:13)
== END 2024-04-16 13:54 | disposition home or self-care (01) | DRG 175 ==
LOC: ED 12:26 → PCU 13:18
PROVIDERS: Physician Assistant; Admitting Provider Hospitalist; Emergency Provider Emergency Medicine; Visit Provider Internal Medicine
DX: I26.09 Other pulmonary embolism with acute cor pulmonale (principal); J96.01 Acute respiratory failure with hypoxia; I50.32 Chronic diastolic (congestive) heart failure; Z68.41 Body mass index [BMI] 40.0-44.9, adult; I70.0 Atherosclerosis of aorta; I08.1 Rheumatic disorders of both mitral and tricuspid valves; I82.461 Acute embolism and thrombosis of right calf muscular vein; E66.01 Morbid (severe) obesity due to excess calories; E87.6 Hypokalemia; Z11.52 Encounter for screening for COVID-19; R03.0 Elevated blood-pressure reading, without diagnosis of hypertension; R73.9 Hyperglycemia, unspecified; Z79.01 Long term (current) use of anticoagulants; Z79.899 Other long term (current) drug therapy
CPT/HCPCS: 36415; 71275; 80048; 83036; 83735; 83880; 84443; 84484; 85025; 85610; 85730; 87631; 93005; 93306; 93971; 99285; Q9967; A4216

== ENCOUNTER → 2024-05-08 | Outpatient (CLI) | payer MEDICARE, SELFPAY ==
[2024-05-08 12:40] LABS: Absolute Lymphocyte Count 0.96 X10^3/uL (0.83-4.51); Absolute Neutrophil Count 5.6 X10^3/uL (2.0-7.7); Basophil# 0.03 X10^3/uL; Basophil% 0.4 % (0-1); Eosinophil# 0.03 X10^3/uL; Eosinophils% 0.4 % (0-5); Hematocrit 39.1 % (37-47); Hemoglobin 13.1 g/dL (12.0-15.0); Lymphocyte # 0.96 X10^3/ul (0.83-4.51); Lymphocyte % 13.6 % (19-41); Mean Corp Hgb Conc 33.5 g/dL (32-36); Mean Corpuscular Hgb 29.6 pg (27.0-32.0); Mean Corpuscular Volume 88.5 fL (81-99); Mean Platelet Vol. 10.3 fl (6.2-12.0); Monocyte# 0.45 X10^3/uL; Monocyte% 6.4 % (0-10); NRBC Flagged by Analyzer 0 % (0-5); Neutrophil # 5.55 X10^3/uL (2.7-7.7); Neutrophil % 78.9 % (47-70); Platelet Count 256 K/mm3 (150-450); RBC Distribution Width CV 12.5 % (11.6-14.6); RBC Distribution Width SD 40.8 fl (35.1-43.9); Red Blood Count 4.42 M/mm3 (4.2-5.4)
[2024-05-08 12:57] LABS: Anion Gap 13 (5-15); BUN 16 mg/dL (4-19); BUN/Creat Ratio 19.5 RATIO (10-20); Calcium,Total 9.6 mg/dL (7.6-11.0); Carbon Dioxide 21.7 mmol/L (21.0-32.0); Chloride 104 mmol/L (98-108); Creatinine, Serum 0.82 mg/dL (0.70-1.20); EST Glomerular Filtration Rate 74 (>60); Glucose 124 mg/dL (70-99); Potassium 3.9 mmol/L (3.3-5.1); Sodium Level 139 mmol/L (133-145); Thyroid Stim Hormone (TSH) 0.007 uIU/mL (0.300-4.200)
[2024-05-09 22:54] LABS: Free T3 4.5 pg/mL (2.18-3.98); T4 Total, Thyroxin 9.8 ug/dL (4.8-13.9)
== END | disposition home or self-care (01) ==
LOC: VSLAB 09:06
DX: I10 Essential (primary) hypertension (principal); R94.6 Abnormal results of thyroid function studies
CPT/HCPCS: 36415; 80048; 84436; 84439; 84443; 84481; 85025

== ENCOUNTER → 2024-05-21 | Outpatient (CLI) | payer MEDICARE, SELFPAY ==
[2024-05-21 14:44] LABS: Anion Gap 14 (5-15); BUN 17 mg/dL (4-19); BUN/Creat Ratio 21.8 RATIO (10-20); Calcium,Total 7.9 mg/dL (7.6-11.0); Carbon Dioxide 19.9 mmol/L (21.0-32.0); Chloride 105 mmol/L (98-108); Cholesterol 196 mg/dL (<=200); Creatinine, Serum 0.79 mg/dL (0.70-1.20); EST Glomerular Filtration Rate 77 (>60); Glucose 124 mg/dL (70-99); High Density Lipoprotein 50 mg/dL; Low Density Lipoprotein Calc. 128 mg/dL; Potassium 3.9 mmol/L (3.3-5.1); Sodium Level 139 mmol/L (133-145); Triglycerides 93 mg/dL; Very Low Density Lipoprotein 19 mg/dL (5-40); cholesterol:hdl ratio screen 3.95
[2024-05-21 20:55] LABS: Hemoglobin A1c 5.4 % (<=5.6)
== END | disposition home or self-care (01) ==
LOC: VSLAB 10:22
DX: Z13.220 Encounter for screening for lipoid disorders (principal); I10 Essential (primary) hypertension; R73.09 Other abnormal glucose
CPT/HCPCS: 36415; 80048; 80061; 83036